=== PATIENT | female | born 1990 | race Two or more races ===

== ENCOUNTER 2017-08-02 11:03 | Emergency (ER) | payer MEDICAID, OTHER ==
[~2017-08-02] VITALS: Ht 162.6 cm; Wt 59.0 kg
[~2017-08-02 11:03] MED LIST: ABILIFY5 MG ORAL; DEBROX15 M1 OT; LATUDA20 MG PO; ZITHROMAX250 MG ORAL
[2017-08-02 11:24] VITALS: BP 115/68
[2017-08-02] MEDS ORDERED: CLARITIN-D 121 EAC1 ORAL (11:44)
[2017-08-02] MEDS ORDERED: Acetaminophen 500mg (ES) tab ORAL ONE (11:45)
[2017-08-02 11:55] VITALS: BP 115/68
--- NOTE | 2017-08-08 00:51 | Emergency Room Report ---
History of Present Illness General Chief Complaint: Earache Source: Patient Present Illness HPI Patient's 26-year-old female presented after increased left-sided earache. Patient gradual onset of symptoms. Patient was noted to have sharp pain which did not radiate. She denied hearing loss. She not having any ear discharge. She denied recent swimming or tenderness. She denied any vertigo sensation. Allergies: Coded Allergies: No Known Allergies (Unverified , 06/08/14) Patient History Past Medical History: see triage record Last Menstrual Period: 06/08/2018 Reviewed Nursing Documentation: PMH: Agreed, PSxH: Agreed Nursing Documentation-PMH Past Medical History: No Stated History Review of Systems All Other Systems: negative except mentioned in HPI Physical Exam Vital Signs Date Time Temp Pulse Resp B/P (MAP) Pulse Ox O2 Delivery O2 Flow Rate FiO2 08/02/17 11:16 97.5 65 16 108/69 100 Room Air General Appearance: well appearing, no apparent distress, alert, GCS 15 Head: normocephalic, atraumatic ENT: normal ENT inspection, hearing grossly normal, normal voice Neck: full range of motion, supple Respiratory: no respiratory distress, speaking full sentences Musculoskeletal: no calf tenderness Neurologic: normal gait Psychiatric: mood/affect normal Skin: no rash Medical Decision Making Diagnostic Impression: Primary Impression: Earache, left ER Course Patient presented for ear pain. Differential diagnosis included was not limited to otitis media, malignant otitis externa, foreign body, cellulitis, mastoiditis, carotid dissection, myocardial infarction among others. Patient has a benign exam and does not appear to require any further imaging or laboratory testing at this time. The patient did not have what appears to be infection.The patient is advised to follow up with primary care doctor in 1-2 days. Patient is advised to return if any worsening condition or if any changes in status that are concerning. This report is dictated with [employer] pipe coverer helper software which may occasionally lead to discrepancies related to use of this software. Last Vital Signs Date Time Temp Pulse Resp B/P (MAP) Pulse Ox O2 Delivery O2 Flow Rate FiO2 08/02/17 11:55 98.0 70 17 115/68 100 Room Air Status: improved Disposition: HOME, SELF-CARE Condition: Stable Scripts Loratadine/Pseudoephedrine (CLARITIN-D 12 HOUR TABLET) 1 Each Tab.er.12h 1 TAB ORAL EVERY 12 HOURS, #20 TAB Prov: Gil Napier 08/02/17 Referrals: NON PHYSICIAN (PCP) Patient Instructions: Gil Day Aug 08, 2017 00:50
== END 2017-08-02 12:16 | disposition home or self-care (01) ==
LOC: EMR 11:46
DX: H92.02 Otalgia, left ear (principal)
CPT/HCPCS: 99283

== ENCOUNTER 2018-06-26 10:06 | Emergency (ER) | payer OTHER ==
[~2018-06-26] VITALS: Ht 170.2 cm; Wt 55.3 kg
[~2018-06-26 10:06] MED LIST changes: +CLARITIN-D 121 EAC1 ORAL
[2018-06-26 10:20] VITALS: BP 106/72
[2018-06-26] MEDS ORDERED: OFLOXACIN5 ML OT (10:50)
--- NOTE | 2018-06-26 10:51 | Emergency Room Report ---
History of Present Illness General Chief Complaint: Earache Source: Patient Present Illness HPI This patient complains of right ear pain for about 1 day. There is no fever. No nasal congestion no cough no chest pain or shortness of breath and no other complaint. Not go swimming, although she does get water in her ear when she showers. Also has been using an [id number] earwax preparation which put liquid in her ear. Allergies: Coded Allergies: No Known Allergies (Unverified , 06/08/14) Patient History Last Menstrual Period: Now Now: No Nursing Documentation-[facility] Past Medical History: No History, Except For History Of Psychiatric Problem: Yes - Schizo Review of Systems All Other Systems: limited Physical Exam Vital Signs Date Time Temp Pulse Resp B/P (MAP) Pulse Ox O2 Delivery O2 Flow Rate FiO2 06/26/18 10:10 97.5 76 18 104/70 99 Room Air General Appearance: well appearing, no apparent distress Head: normocephalic, atraumatic ENT: hearing grossly normal, normal voice, moist mucus membranes, other - right OE and left ear normal Neck: full range of motion, supple Respiratory: no respiratory distress, speaking full sentences Musculoskeletal: no calf tenderness Neurologic: alert, normal gait Psychiatric: mood/affect normal Skin: no rash Medical Decision Making Diagnostic Impression: Primary Impression: Otitis externa of right ear Last Vital Signs Date Time Temp Pulse Resp B/P (MAP) Pulse Ox O2 Delivery O2 Flow Rate FiO2 06/26/18 10:20 97.9 73 18 106/72 98 Room Air Status: improved Disposition: HOME, SELF-CARE Condition: Stable Scripts Ofloxacin (OFLOXACIN) 5 Ml Drops 10 ML OT DAILY for ten drops right ear daily for 5 Days, #10 ML Prov: Madan Woods M.D. 06/26/18 Patient Instructions: Otitis Externa, [id number] Madan Woods M.D. Jun 26, 2018 10:51
[2018-06-26 11:01] VITALS: BP 105/74
== END 2018-06-26 11:01 | disposition home or self-care (01) ==
LOC: EMR 10:55
DX: H60.91 Unspecified otitis externa, right ear (principal)
CPT/HCPCS: 99282

== ENCOUNTER 2018-12-27 13:12 | Emergency (ER) | payer OTHER ==
[~2018-12-27] VITALS: Ht 162.6 cm; Wt 59.0 kg
[~2018-12-27 13:12] MED LIST changes: +OFLOXACIN5 ML OT
--- NOTE | 2018-12-27 13:35 | NUR ---
ED Nurse Note: patient walked into ED with her mother due to coughing, sore throat, and runny nose for 2 weeks.
[2018-12-27 14:13] VITALS: BP 118/62
--- NOTE | 2018-12-27 14:22 | Emergency Room Report ---
History of Present Illness General Chief Complaint: Upper Respiratory Illness Source: Patient, Medical Record Present Illness HPI 28 -year-old female presents to the emergency department complaining of persistent productive cough with runny nose, nasal congestion and 2/10 in severity sore throat x2 weeks. Patient denies fevers or chills she denies body aches, recent travel or history of smoking/asthma. Patient reports mother has similar symptoms as well. Patient states that she is vaccinated. Patient denies neck pain or stiffness denies headache or photophobia. No significant PMHx. Non smoker, and no dx of asthma. Denies chest pains, palpitations or feeling short of breath. Allergies: Coded Allergies: No Known Allergies (Unverified , 06/08/14) Patient History Past Medical History: see triage record Past Surgical History: none Pertinent Family History: none Last Menstrual Period: 12/26/18 Now: No Immunizations: UTD Reviewed Nursing Documentation: PMH: Agreed; PSxH: Agreed Nursing Documentation-PMH Past Medical History: No History, Except For History Of Psychiatric Problem: Yes - Depression, mental health problem Review of Systems All Other Systems: negative except mentioned in HPI Physical Exam Vital Signs Date Time Temp Pulse Resp B/P (MAP) Pulse Ox O2 Delivery O2 Flow Rate FiO2 12/27/18 13:28 97.3 76 16 110/64 (79) 97 Room Air Sp02 EP Interpretation: reviewed, normal General Appearance: no apparent distress, alert, GCS 15, non-toxic Head: normocephalic, atraumatic Eyes: bilateral eye normal inspection, bilateral eye PERRL ENT: hearing grossly normal, normal voice, TMs + canals normal, uvula midline, moist mucus membranes, nasal congestion, pharyngeal erythema Neck: full range of motion, no meningismus Respiratory: chest non-tender, lungs clear, normal breath sounds, no rhonchi, no respiratory distress, no retraction, no accessory muscle use, speaking full sentences, wheezing - scant Cardiovascular #1: regular rate, rhythm Musculoskeletal: back normal, gait/station normal, normal range of motion, non- tender Neurologic: alert, oriented x3, responsive, motor strength/tone normal, sensory intact, speech normal, grossly normal Psychiatric: judgement/insight normal Skin: normal color, no rash, warm/dry, well hydrated Lymphatic: no adenopathy Medical Decision Making PA Attestation Dr. Moreno Is my supervising Physician whom patient management has been discussed with. Diagnostic Impression: Primary Impression: Bronchitis ER Course 28 -year-old female presents to the emergency department complaining of persistent productive cough with runny nose, nasal congestion and 2/10 in severity sore throat x2 weeks. Patient denies fevers or chills she denies body aches, recent travel or history of smoking/asthma. Patient reports mother has similar symptoms as well. Patient states that she is vaccinated. Patient denies neck pain or stiffness denies headache or photophobia. No significant PMHx. Non smoker, and no dx of asthma. Denies chest pains, palpitations or feeling short of breath. Ddx considered but are not limited to URI, pneumonia, PE, strep pharyngitis, meningitis. Vital signs: Pt.is afebrile VS are WNL H&PE are most consistent with bronchitis ORDERS: none required at this time, the diagnosis is clinical ED INTERVENTIONS: None required at this time. DISCHARGE: At this time pt. is stable for d/c to home. Will provide printed patient care instructions, and any necessary prescriptions. Care plan and follow up instructions have been discussed with the patient prior to discharge. Last Vital Signs Date Time Temp Pulse Resp B/P (MAP) Pulse Ox O2 Delivery O2 Flow Rate FiO2 12/27/18 14:13 97.3 72 18 118/62 99 Room Air Disposition: HOME, SELF-CARE Condition: Stable Scripts Benzonatate* (BENZONATATE*) 200 Mg Capsule 200 MG ORAL THREE TIMES A DAY, #20 PERLE Prov: Destiney Littlejohn 12/27/18 Guaifenesin (Mucinex) 1,200 Mg Tab.er.12h 1200 MG PO Q12HR, #20 TAB Prov: Destiney Littlejohn 12/27/18 Albuterol Sulfate* (ALBUTEROL SULFATE MDI*) 8.5 Gm Hfa.aer.ad 2 PUFF INH Q3H, #1 INH 0 Refills Prov: Destiney Littlejohn 12/27/18 Codeine/Promethazine Hcl* (PROMETHAZINE-CODEINE SYRUP*) 118 Ml Syrup 5 ML ORAL Q6H PRN for For Cough, #120 ML 0 Refills Prov: Destiney Littlejohn 12/27/18 Referrals: NON PHYSICIAN (PCP) Patient Instructions: Acute Bronchitis, [id number] Additional Instructions: Take medications as directed. Follow up with a Primary Care Provider in 3-5 days, even if your symptoms have resolved. --Please review list of primary care clinics, if you do not already have a primary care provider Return sooner to ED if new symptoms occur, or current symptoms become worse. Do not drink alcohol, drive, or operate heavy machinery while taking Cough Syrup as this may cause drowsiness. - Please note that this Emergency Department Report was dictated using [employer] and trolley dispatcher technology software, occasionally this can lead to erroneous entry secondary to interpretation by the dictation equipment. Destiney Littlejohn Dec 27, 2018 14:22
[2018-12-27] MEDS ORDERED: BENZONATATE200 MG ORAL (14:23)
[2018-12-27] MEDS ORDERED: MUCINEX1200 MG PO (14:23)
[2018-12-27] MEDS ORDERED: ALBUTEROL SULF8.5 GM INH (14:23)
[2018-12-27] MEDS ORDERED: PROMETHAZINE-C118 M1 ORAL (14:23)
[2018-12-27 14:36] VITALS: BP 118/62
--- NOTE | 2018-12-27 14:36 | NUR ---
ER DISCHARGE NOTE: Patient is cleared to be discharged per KENA MARRERO, pt is aox4, on room air, with stable vital signs. pt was given dc and prescription instructions, pt was able to verbalize understanding, pt id band removed without complications. pt is able to ambulate with steady gait. pt took all belongings.
== END 2018-12-27 14:36 | disposition home or self-care (01) ==
LOC: EMR 13:55
DX: J40 Bronchitis, not specified as acute or chronic (principal); F32.9 Major depressive disorder, single episode, unspecified
CPT/HCPCS: 99283

== ENCOUNTER 2019-03-28 19:05 | Emergency (ER) | payer OTHER ==
[~2019-03-28] VITALS: Ht 167.6 cm; Wt 63.5 kg
[~2019-03-28 19:05] MED LIST changes: +ALBUTEROL SULF8.5 GM INH; +BENZONATATE200 MG ORAL; +MUCINEX1200 MG PO; +PROMETHAZINE-C118 M1 ORAL
--- NOTE | 2019-03-28 19:15 | NUR ---
ED Nurse Note: Patient walked into ED accompanied by family member c/o flu like symptoms that have been an on going issue for the pat 3 days, states that shes been experiencing cough accompanied by congestion, denies any pain at this time, denies any fever or chills at home, patient is alert and oriented x4. patient is placed in a room, complains of no distress. will wait for further orders
[2019-03-28 19:16] VITALS: BP 117/75
[2019-03-28] MEDS ORDERED: TESSALON PERLE100 M2 ORAL (19:28)
[2019-03-28] MEDS ORDERED: CETIRIZINE-PSE1 EACH PO (19:29)
[2019-03-28 19:43] VITALS: BP 122/70
--- NOTE | 2019-03-28 19:43 | NUR ---
ER DISCHARGE NOTE: Patient is cleared to be discharged per PA, pt is aox4, on room air, with stable vital signs. pt was given dc and prescription instructions, pt was able to verbalize understanding, pt id band removed. pt is able to ambulate with steady gait. pt took all belongings and left with a family member.
--- NOTE | 2019-03-28 19:55 | Emergency Room Report ---
History of Present Illness General Chief Complaint: Flu Like Symptoms Source: Patient Present Illness HPI 28-year-old female with no significant past medical history complaining of dry cough and nasal congestion x3 days. Denies fever, shortness of breath, chest pain, vomiting, diarrhea, abdominal pain, rash. Mom sick with similar symptoms. No recent travel. Allergies: Coded Allergies: No Known Allergies (Unverified , 06/08/14) Patient History Past Medical History: none Past Surgical History: none Social History: Denies: smoking, alcohol use, drug use Last Menstrual Period: 03/28/19 Nursing Documentation-[facility] Past Medical History: No Stated History Review of Systems All Other Systems: negative except mentioned in HPI Physical Exam Vital Signs Date Time Temp Pulse Resp B/P (MAP) Pulse Ox O2 Delivery O2 Flow Rate FiO2 03/28/19 19:10 97.9 73 18 117/75 (89) 98 Room Air Sp02 EP Interpretation: reviewed, normal ENT: hearing grossly normal, normal pharynx, no angioedema, normal voice, other - clear nasal discharge Respiratory: chest non-tender, lungs clear, normal breath sounds, speaking full sentences Cardiovascular #1: regular rate, rhythm, no edema Neurologic: alert, oriented x3, responsive, motor strength/tone normal, sensory intact, speech normal Skin: no rash, warm/dry Medical Decision Making PA Attestation This patient was seen under the direct supervision of Dr. Benedict, who directed all aspects of care and diagnostic interpretation. Diagnostic Impression: Primary Impression: Upper respiratory infection ER Course ED course HPI: 28-year-old female with no significant past medical history complaining of dry cough and nasal congestion x3 days. Denies fever, shortness of breath, chest pain, vomiting, diarrhea, abdominal pain, rash. Mom sick with similar symptoms. No recent travel. Ddx: Viral URI, bronchitis, pneumonia, allergic rhinitis. HPI & PE consistent with: viral URI Orders/ Interventions: None. Benign physical exam, no imaging or labs indicated. Discussed with patient and mother symptoms likely viral etiology- no antibiotics are indicated. Disposition: Patient discharged with Rx for Tessalon and cetirizine-D. Supportive care. Increase oral hydration and rest. At this time pt. is stable for d/c to home. Will provide printed patient care instructions, and any necessary prescriptions. Care plan and follow up instructions have been discussed with the patient prior to discharge. Please note that this Emergency Department Report was dictated using [employer] physical therapist technology software, occasionally this can lead to erroneous entry secondary to interpretation by the dictation equipment. Last Vital Signs Date Time Temp Pulse Resp B/P (MAP) Pulse Ox O2 Delivery O2 Flow Rate FiO2 03/28/19 19:43 98.4 85 16 122/70 100 Room Air Status: unchanged Disposition: HOME, SELF-CARE Condition: Stable Scripts Cetirizine Hcl/Pseudoephedrine (CETIRIZINE-PSE ER 5-120 MG TAB) 1 Each Tab.er.12h 1 EACH PO BID, #14 TAB Prov: Carmenza Bonner 03/28/19 Benzonatate (Tessalon Perle) 100 Mg Capsule 100 MG ORAL THREE TIMES A DAY, #20 PERLE Prov: Carmenza Bonner 03/28/19 Referrals: [facility],REFERR[facility] (PCP) Patient Instructions: Upper Respiratory Infection, Adult, [id number] Additional Instructions: Followup with PCP in 2 to 3 days or return to ER if worsening symptoms, new symptoms or sudden change in condition. Carmenza Bonenr Mar 28, 2019 19:55
== END 2019-03-28 19:43 | disposition home or self-care (01) ==
LOC: EMR 19:39
DX: J06.9 Acute upper respiratory infection, unspecified (principal)
CPT/HCPCS: 99282